=== PATIENT | male | born 1960 | race African-American/Black ===

== ENCOUNTER 2017-04-25 12:07 | Inpatient (IN) | payer OTHER ==
[2017-04-25 13:27] VITALS: BMI 20.7
--- NOTE | 2017-04-25 15:52 | HP ---
Admission [facility] Chief Complaint: Jeanna FOSS FOR REHAB FROM ALCOHOL AND COCAINE Allergies/Adverse Reactions: Allergies Allergy/AdvReac Type Severity Reaction Status Date / Time No Known Allergies Allergy Verified 04/25/17 15:18 History of Present Illness: THIS 56 YEARS OLD MALE WITH ALCOHOL AND COCAINE DEPENDENCE SEEKING REHAB ,LAST TREATMENT 2002 [facility] DEPENDENCE COPD PTSD ANXIETY AND DEPRESSION LONGEST PERIOD OF SOBRIETY 7 MONTHS Exam Limitations: No Limitations - Ebola screening Have you traveled outside of the country in the last 21 days: No Have you had contact with anyone from an Ebola affected area: No Have you been sick,other than usual withdrawal symptoms: No - Review of Systems Constitutional: No Symptoms Reported EENT: reports: No Symptoms Reported Respiratory: reports: Other (COPD) Cardiac: reports: No Symptoms Reported GI: reports: No Symptoms Reported : reports: No Symptoms Reported Musculoskeletal: reports: No Symptoms Reported Integumentary: reports: No Symptoms Reported Neuro: reports: No Symptoms reported Endocrine: reports: No Symptoms Reported Hematology: reports: No Symptoms Reported Psychiatric: reports: Anxious (PTSD), Depressed Patient History - Patient Medical History Hx Anemia: No Hx Asthma: No Hx Chronic Obstructive Pulmonary Disease (COPD): Yes (ON INHALER) Hx Cancer: No Hx Cardiac Disorders: No Hx Congestive Heart Failure: No Hx Hypertension: Yes (ON MED) Hx Hypercholesterolemia: No Hx Pacemaker: No HX Cerebrovascular Accident: No Hx Seizures: No Hx Dementia: No Hx Diabetes: No Hx Gastrointestinal Disorders: No Hx Liver Disease: No Hx Genitourinary Disorders: No Hx Sexually Transmitted Disorders: No Hx Renal Disease (ESRD): No Hx Thyroid Disease: No Hx Human Immunodeficiency Virus (HIV): No (LAST 04/03 NEGATIVE) Hx Hepatitis C: No Hx Depression: Yes (ANXIETY) Hx Suicide Attempt: No Hx Bipolar Disorder: No Hx Schizophrenia: No Other Medical History: NO SUIICDAL,NO HOMICIDAL - Patient Surgical History Hx Orthopedic Surgery: Yes (HAMMER TOES BOTH FEET) - PPD History Documented Results: Negative w/o proof Implanted On Prior [facility] Admission?: No PPD to be Administered?: Yes - Smoking Cessation Smoking history: Current every day smoker Have you smoked in the past 12 months: Yes Cigars Per Day: 10 Hx Chewing Tobacco Use: No Initiated information on smoking cessation: Yes 'Breaking Loose' booklet given: 04/25/17 - Substance & Tx. History Hx Alcohol Use: Yes Hx Substance Use: Yes Substance Use Type: Alcohol, Cocaine Hx Substance Use Treatment: Yes ([facility] 2002) - Substances Abused Cocaine Route: Smoking Frequency: Daily Amount used: 20$ Alcohol Route: Oral Frequency: 3-6 times per week Amount used: 1PINT OF VODKA Age of first use: 54 Date of Last Use: 04/24/17 Family Disease History - Family Disease History Family History: Denies Family Disease History: Other: Father (), Mother () Admission Physical Exam [facility] - Vital Signs Vital Signs: Vital Signs - 24 hr 04/25/17 13:24 Temperature 96.8 F L Pulse Rate 83 Respiratory 18 Rate Blood Pressure 128/65 - Physical General Appearance: Yes: Within Normal Limits HEENTM: Yes: Normal ENT Inspection, DIRK, Pharynx Normal Respiratory: Yes: Lungs Clear, Normal Breath Sounds, No Respiratory Distress Neck: Yes: Within Normal Limits Breast: Yes: Within Normal Limits Cardiology: Yes: Within Normal Limits, Regular Rhythm, Regular Rate, S1, S2 Abdominal: Yes: Within Normal Limits, Normal Bowel Sounds, Non Tender, Flat, Soft Genitourinary: Yes: Within Normal Limits Back: Yes: Within Normal Limits Musculoskeletal: Yes: Within Normal Limits Extremities: Yes: Within Normal Limits 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, Fully Oriented, Alert, Motor Strength 5/5 Integumentary: Yes: Within Normal Limits Lymphatic: Yes: Within Normal Limits - Diagnostic (1) Alcohol dependence Current Visit: Yes Status: Acute (2) Cocaine dependence Current Visit: Yes Status: Acute (3) COPD (chronic obstructive pulmonary disease) Current Visit: Yes Status: Acute (4) Hypertension Current Visit: Yes Status: Acute (5) Anxiety and depression Current Visit: Yes Status: Acute (6) Hammer toes, bilateral Current Visit: Yes Status: Acute Cleared for Admission [facility] - Detox or Rehab Claeared for Rehab Admission: Yes [facility] Breath Alcohol Content Breath Alcohol Content: 0 Urine Drug Screen - Results Drug Screen Negative: No Urine Drug Screen Results: ANASTASIIA-Cocaine
[2017-04-25] MEDS ORDERED: ALBUTEROL SO4 6.7 GM HFA INHALER IH PRN (15:58)
[2017-04-25] MEDS ORDERED: MAGNESIUM CITRATE 300 ML BOTTLE PO PRN (16:19)
[2017-04-25] MEDS ORDERED: NICOTINE POLACRILEX 2 MG GUM BC PRN (16:19)
[2017-04-25] MEDS ORDERED: guaiFENesin/D-METHORPHAN HB 10 ML UNIT-DOSE CUPS PO PRN (16:19)
[2017-04-25] MEDS ORDERED: P-EPHED 60MG/TRIPROLIDI 2.5MG TABLET PO PRN (16:19)
[2017-04-25] MEDS ORDERED: LOPERAMIDE HCL 2 MG CAPSULE PO PRN (16:19)
[2017-04-25] MEDS ORDERED: MAG HYDROX/AL HYDROX/SIMETH 30 ML UNIT-DOSE CUP PO PRN (16:19)
[2017-04-25] MEDS ORDERED: IBUPROFEN 400 MG TABLET (FP) PO PRN (16:19)
[2017-04-25] MEDS ORDERED: MENTHOL/PHENOL 1 EACH UD MM PRN (16:19)
[2017-04-25] MEDS ORDERED: MAGNESIUM HYDROX 2400MG/30ML ORAL SUSPENSION 30 ML CUP PO PRN (16:19)
[2017-04-25] MEDS ORDERED: diphenhydrAMINE HCL 50 MG CAPSULE PO PRN (16:19)
[2017-04-25] MEDS ORDERED: hydrOXYzine PAMOATE 50 MG CAPSULE (FP) PO PRN (16:19)
[2017-04-25] MEDS ORDERED: ACETAMINOPHEN 325 MG TABLET (FP) PO PRN (16:19)
[2017-04-25] MEDS ORDERED: TUBERCULIN PPD 5 TU/0.1ML VIAL ID ONE (18:35)
[2017-04-25] MEDS: NICOTINE 21 MG/24 HOURS TOPICAL PATCH TD SCH (19:31)
[2017-04-25] MEDS: THIAMINE HCL 100 MG TABLET (FP) PO SCH (21:08)
[2017-04-25] MEDS: NAPROXEN 500 MG TABLET (FP) PO SCH (21:08)
[2017-04-25] MEDS: BUDESONIDE/FORMETEROL FUMARATE 160/4.5 mcg INHALER IH SCH (21:09)
[2017-04-25 21:17] LABS: URINE APPEARANCE CLEAR; URINE BILIRUBIN NEGATIVE (NEGATIVE); URINE BLOOD NEGATIVE (NEGATIVE); URINE COLOR LTYELLOW; URINE GLUCOSE (UA) NEGATIVE (NEGATIVE); URINE KETONE NEGATIVE (NEGATIVE); URINE LEUK ESTERASE NEGATIVE (NEGATIVE); URINE NITRITE NEGATIVE (NEGATIVE); URINE PROTEIN NEGATIVE (NEGATIVE); URINE UROBILINOGEN NEGATIVE E.U./dl (0.2-1.0)
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
[2017-04-26] MEDS: NAPROXEN 500 MG TABLET (FP) PO SCH ×2 (09:47→21:03)
[2017-04-26] MEDS: amLODIPine BESYLATE 10 MG TABLET (FP) PO SCH (09:47)
[2017-04-26] MEDS: PRENATAL VITAMINS W/ FOLIC ACID TABLET (FP) PO SCH (09:47)
[2017-04-26] MEDS: BUDESONIDE/FORMETEROL FUMARATE 160/4.5 mcg INHALER IH SCH ×2 (09:47→21:05)
[2017-04-26] MEDS: NICOTINE 21 MG/24 HOURS TOPICAL PATCH TD SCH (09:48)
[2017-04-26 09:54] LABS: MCH 32.1 pg (25.7-33.7); MCHC 33.8 g/dl (32.0-35.9); MEAN CELL VOLUME 95.1 fl (80-96); MEAN PLT VOLUME 9.6 fl (7.5-11.1); PLATELET COUNT 276 K/MM3 (134-434); RDW 13.7 % (11.9-15.9); WHITE BLOOD COUNT 7.6 K/mm3 (4.0-10.0)
--- NOTE | 2017-04-26 10:04 | EKG ---
Test Reason : Blood Pressure : / mmHG Vent. Rate : 062 BPM Atrial Rate : 062 BPM P-R Int : 138 ms QRS Dur : 102 ms QT Int : 418 ms P-R-T Axes : 058 037 007 degrees QTc Int : 424 ms NORMAL SINUS RHYTHM VOLTAGE CRITERIA FOR LEFT VENTRICULAR HYPERTROPHY NONSPECIFIC ST ABNORMALITY ABNORMAL ECG NO PREVIOUS ECGS AVAILABLE Confirmed by IMANI MONACO MD ([id number]) on 04/26/2017 10:04:25 AM Referred By: Confirmed By:IMANI MONACO MD
[2017-04-26 10:28] LABS: ALBUMIN 4.2 g/dl (3.4-5.0); ALK PHOS 128 U/L (45-117); ANION GAP 7 (8-16); BILIRUBIN,TOTAL 0.8 mg/dL (0.2-1.0); CALCIUM 9.5 mg/dL (8.5-10.1); CO2 31 mmol/L (21-32); COCKROFT - GAULT 68; CREATININE 1.2 mg/dL (0.7-1.3); GLUCOSE,RANDOM 64 mg/dL (74-106); SGOT/AST 30 U/L (15-37); SGPT/ALT 28 U/L (12-78); TOT PROT 7.8 g/dl (6.4-8.2)
[2017-04-26] MEDS ORDERED: IBUPROFEN 600 MG TABLET (FP) PO PRN (11:53)
[2017-04-26] MEDS ORDERED: PNEUMOCOCCAL 23 VACCINE 0.5 ML VIAL IM ONE (12:00)
[2017-04-26] MEDS ORDERED: PNEUMOC 13-VAL CONJ-DIP CRM/PF 0.5 ML DISP.SYRIN IM ONE (12:00)
[2017-04-26] MEDS: LIDOCAINE 5% TOPICAL PATCH TP SCH (12:06)
[2017-04-26] MEDS: CITALOPRAM HYDROBROMIDE 20 MG TABLET (FP) PO SCH (21:03)
[2017-04-26] MEDS: traZODone HCL 100 MG TABLET (FP) PO SCH (21:03)
[2017-04-26] MEDS: THIAMINE HCL 100 MG TABLET (FP) PO SCH (21:03)
[2017-04-26] MEDS: risperiDONE 2 MG TABLET PO SCH (21:03)
[2017-04-26] MEDS: LIDOCAINE PATCH REMOVAL MC SCH (22:30)
[2017-04-27] MEDS: PRENATAL VITAMINS W/ FOLIC ACID TABLET (FP) PO SCH (09:33)
[2017-04-27] MEDS: amLODIPine BESYLATE 10 MG TABLET (FP) PO SCH (09:33)
[2017-04-27] MEDS: NAPROXEN 500 MG TABLET (FP) PO SCH ×2 (09:33→21:08)
[2017-04-27] MEDS: LIDOCAINE 5% TOPICAL PATCH TP SCH (09:34)
[2017-04-27] MEDS: NICOTINE 21 MG/24 HOURS TOPICAL PATCH TD SCH (09:34)
[2017-04-27] MEDS: BUDESONIDE/FORMETEROL FUMARATE 160/4.5 mcg INHALER IH SCH ×2 (09:36→21:08)
[2017-04-27] MEDS: traZODone HCL 100 MG TABLET (FP) PO SCH (21:07)
[2017-04-27] MEDS: LIDOCAINE PATCH REMOVAL MC SCH (21:08)
[2017-04-27] MEDS: THIAMINE HCL 100 MG TABLET (FP) PO SCH (21:08)
[2017-04-27] MEDS: risperiDONE 2 MG TABLET PO SCH (21:08)
[2017-04-27] MEDS: CITALOPRAM HYDROBROMIDE 20 MG TABLET (FP) PO SCH (21:08)
[2017-04-28] MEDS: amLODIPine BESYLATE 10 MG TABLET (FP) PO SCH (09:44)
[2017-04-28] MEDS: PRENATAL VITAMINS W/ FOLIC ACID TABLET (FP) PO SCH (09:44)
[2017-04-28] MEDS: NAPROXEN 500 MG TABLET (FP) PO SCH ×2 (09:44→21:04)
[2017-04-28] MEDS: LIDOCAINE 5% TOPICAL PATCH TP SCH (09:44)
[2017-04-28] MEDS: BUDESONIDE/FORMETEROL FUMARATE 160/4.5 mcg INHALER IH SCH ×2 (09:44→21:05)
[2017-04-28] MEDS: NICOTINE 21 MG/24 HOURS TOPICAL PATCH TD SCH (09:46)
[2017-04-28] MEDS: CITALOPRAM HYDROBROMIDE 20 MG TABLET (FP) PO SCH (21:04)
[2017-04-28] MEDS: traZODone HCL 100 MG TABLET (FP) PO SCH (21:04)
[2017-04-28] MEDS: THIAMINE HCL 100 MG TABLET (FP) PO SCH (21:04)
[2017-04-28] MEDS: risperiDONE 2 MG TABLET PO SCH (21:04)
[2017-04-28] MEDS: LIDOCAINE PATCH REMOVAL MC SCH (21:05)
[2017-04-29] MEDS: BUDESONIDE/FORMETEROL FUMARATE 160/4.5 mcg INHALER IH SCH ×2 (09:55→21:11)
[2017-04-29] MEDS: LIDOCAINE 5% TOPICAL PATCH TP SCH (09:55)
[2017-04-29] MEDS: NICOTINE 21 MG/24 HOURS TOPICAL PATCH TD SCH (09:57)
[2017-04-29] MEDS: PRENATAL VITAMINS W/ FOLIC ACID TABLET (FP) PO SCH (09:57)
[2017-04-29] MEDS: NAPROXEN 500 MG TABLET (FP) PO SCH ×2 (09:57→21:09)
[2017-04-29] MEDS: amLODIPine BESYLATE 10 MG TABLET (FP) PO SCH (10:16)
[2017-04-29] MEDS: CITALOPRAM HYDROBROMIDE 20 MG TABLET (FP) PO SCH (21:09)
[2017-04-29] MEDS: traZODone HCL 100 MG TABLET (FP) PO SCH (21:09)
[2017-04-29] MEDS: THIAMINE HCL 100 MG TABLET (FP) PO SCH (21:10)
[2017-04-29] MEDS: risperiDONE 2 MG TABLET PO SCH (21:10)
[2017-04-29] MEDS: LIDOCAINE PATCH REMOVAL MC SCH (21:10)
[2017-04-29] MEDS: COMBIVENT IH PRN (21:11)
[2017-04-30] MEDS: LIDOCAINE 5% TOPICAL PATCH TP SCH (09:51)
[2017-04-30] MEDS: PRENATAL VITAMINS W/ FOLIC ACID TABLET (FP) PO SCH (09:51)
[2017-04-30] MEDS: amLODIPine BESYLATE 10 MG TABLET (FP) PO SCH (09:51)
[2017-04-30] MEDS: NAPROXEN 500 MG TABLET (FP) PO SCH ×2 (09:51→21:01)
[2017-04-30] MEDS: NICOTINE 21 MG/24 HOURS TOPICAL PATCH TD SCH (09:52)
[2017-04-30] MEDS: BUDESONIDE/FORMETEROL FUMARATE 160/4.5 mcg INHALER IH SCH ×2 (09:54→21:02)
[2017-04-30] MEDS: THIAMINE HCL 100 MG TABLET (FP) PO SCH (21:01)
[2017-04-30] MEDS: CITALOPRAM HYDROBROMIDE 20 MG TABLET (FP) PO SCH (21:01)
[2017-04-30] MEDS: LIDOCAINE PATCH REMOVAL MC SCH (21:02)
[2017-04-30] MEDS: risperiDONE 2 MG TABLET PO SCH (21:02)
[2017-04-30] MEDS: traZODone HCL 100 MG TABLET (FP) PO SCH (21:02)
[2017-05-01] MEDS: LIDOCAINE 5% TOPICAL PATCH TP SCH (09:49)
[2017-05-01] MEDS: NICOTINE 21 MG/24 HOURS TOPICAL PATCH TD SCH (09:49)
[2017-05-01] MEDS: PRENATAL VITAMINS W/ FOLIC ACID TABLET (FP) PO SCH (09:50)
[2017-05-01] MEDS: BUDESONIDE/FORMETEROL FUMARATE 160/4.5 mcg INHALER IH SCH ×2 (09:50→21:08)
[2017-05-01] MEDS: NAPROXEN 500 MG TABLET (FP) PO SCH ×2 (09:51→21:08)
[2017-05-01] MEDS: amLODIPine BESYLATE 10 MG TABLET (FP) PO SCH (09:51)
[2017-05-01] MEDS: risperiDONE 2 MG TABLET PO SCH (21:07)
[2017-05-01] MEDS: traZODone HCL 100 MG TABLET (FP) PO SCH (21:07)
[2017-05-01] MEDS: CITALOPRAM HYDROBROMIDE 20 MG TABLET (FP) PO SCH (21:07)
[2017-05-01] MEDS: LIDOCAINE PATCH REMOVAL MC SCH (21:07)
[2017-05-01] MEDS: THIAMINE HCL 100 MG TABLET (FP) PO SCH (21:07)
[2017-05-02] MEDS: NAPROXEN 500 MG TABLET (FP) PO SCH ×2 (09:38→21:10)
[2017-05-02] MEDS: PRENATAL VITAMINS W/ FOLIC ACID TABLET (FP) PO SCH (09:38)
[2017-05-02] MEDS: amLODIPine BESYLATE 10 MG TABLET (FP) PO SCH (09:38)
[2017-05-02] MEDS: LIDOCAINE 5% TOPICAL PATCH TP SCH (09:40)
[2017-05-02] MEDS: NICOTINE 21 MG/24 HOURS TOPICAL PATCH TD SCH (09:41)
[2017-05-02] MEDS: BUDESONIDE/FORMETEROL FUMARATE 160/4.5 mcg INHALER IH SCH ×2 (09:41→21:11)
[2017-05-02] MEDS: COMBIVENT IH PRN (15:44)
[2017-05-02] MEDS: traZODone HCL 100 MG TABLET (FP) PO SCH (21:10)
[2017-05-02] MEDS: risperiDONE 2 MG TABLET PO SCH (21:10)
[2017-05-02] MEDS: THIAMINE HCL 100 MG TABLET (FP) PO SCH (21:10)
[2017-05-02] MEDS: CITALOPRAM HYDROBROMIDE 20 MG TABLET (FP) PO SCH (21:10)
[2017-05-02] MEDS: LIDOCAINE PATCH REMOVAL MC SCH (21:11)
[2017-05-03] MEDS: LIDOCAINE 5% TOPICAL PATCH TP SCH (09:39)
[2017-05-03] MEDS: amLODIPine BESYLATE 10 MG TABLET (FP) PO SCH (09:39)
[2017-05-03] MEDS: NAPROXEN 500 MG TABLET (FP) PO SCH ×2 (09:39→21:17)
[2017-05-03] MEDS: PRENATAL VITAMINS W/ FOLIC ACID TABLET (FP) PO SCH (09:39)
[2017-05-03] MEDS: NICOTINE 21 MG/24 HOURS TOPICAL PATCH TD SCH (09:40)
[2017-05-03] MEDS: BUDESONIDE/FORMETEROL FUMARATE 160/4.5 mcg INHALER IH SCH ×2 (09:40→21:18)
[2017-05-03] MEDS: risperiDONE 2 MG TABLET PO SCH (21:17)
[2017-05-03] MEDS: CITALOPRAM HYDROBROMIDE 20 MG TABLET (FP) PO SCH (21:17)
[2017-05-03] MEDS: THIAMINE HCL 100 MG TABLET (FP) PO SCH (21:17)
[2017-05-03] MEDS: traZODone HCL 100 MG TABLET (FP) PO SCH (21:17)
[2017-05-03] MEDS: LIDOCAINE PATCH REMOVAL MC SCH (21:17)
[2017-05-04] MEDS: amLODIPine BESYLATE 10 MG TABLET (FP) PO SCH (09:29)
[2017-05-04] MEDS: PRENATAL VITAMINS W/ FOLIC ACID TABLET (FP) PO SCH (09:29)
[2017-05-04] MEDS: NAPROXEN 500 MG TABLET (FP) PO SCH ×2 (09:29→21:11)
[2017-05-04] MEDS: LIDOCAINE 5% TOPICAL PATCH TP SCH (09:29)
[2017-05-04] MEDS: BUDESONIDE/FORMETEROL FUMARATE 160/4.5 mcg INHALER IH SCH ×2 (09:30→21:10)
[2017-05-04] MEDS: NICOTINE 21 MG/24 HOURS TOPICAL PATCH TD SCH (09:30)
[2017-05-04] MEDS: CITALOPRAM HYDROBROMIDE 20 MG TABLET (FP) PO SCH (21:09)
[2017-05-04] MEDS: traZODone HCL 100 MG TABLET (FP) PO SCH (21:09)
[2017-05-04] MEDS: risperiDONE 2 MG TABLET PO SCH (21:09)
[2017-05-04] MEDS: THIAMINE HCL 100 MG TABLET (FP) PO SCH (21:09)
[2017-05-04] MEDS: LIDOCAINE PATCH REMOVAL MC SCH (21:09)
[2017-05-05] MEDS: NAPROXEN 500 MG TABLET (FP) PO SCH ×2 (09:44→21:01)
[2017-05-05] MEDS: LIDOCAINE 5% TOPICAL PATCH TP SCH (09:44)
[2017-05-05] MEDS: amLODIPine BESYLATE 10 MG TABLET (FP) PO SCH (09:44)
[2017-05-05] MEDS: COMBIVENT IH PRN (09:44)
[2017-05-05] MEDS: PRENATAL VITAMINS W/ FOLIC ACID TABLET (FP) PO SCH (09:44)
[2017-05-05] MEDS: BUDESONIDE/FORMETEROL FUMARATE 160/4.5 mcg INHALER IH SCH ×2 (09:45→21:01)
[2017-05-05] MEDS: NICOTINE 21 MG/24 HOURS TOPICAL PATCH TD SCH (09:45)
[2017-05-05] MEDS: traZODone HCL 100 MG TABLET (FP) PO SCH (21:01)
[2017-05-05] MEDS: CITALOPRAM HYDROBROMIDE 20 MG TABLET (FP) PO SCH (21:01)
[2017-05-05] MEDS: THIAMINE HCL 100 MG TABLET (FP) PO SCH (21:01)
[2017-05-05] MEDS: risperiDONE 2 MG TABLET PO SCH (21:01)
[2017-05-05] MEDS: LIDOCAINE PATCH REMOVAL MC SCH (21:02)
[2017-05-06] MEDS: COMBIVENT IH PRN (09:56)
[2017-05-06] MEDS: BUDESONIDE/FORMETEROL FUMARATE 160/4.5 mcg INHALER IH SCH ×2 (09:56→21:01)
[2017-05-06] MEDS: LIDOCAINE 5% TOPICAL PATCH TP SCH (09:56)
[2017-05-06] MEDS: amLODIPine BESYLATE 10 MG TABLET (FP) PO SCH (09:56)
[2017-05-06] MEDS: NAPROXEN 500 MG TABLET (FP) PO SCH ×2 (09:56→21:00)
[2017-05-06] MEDS: NICOTINE 21 MG/24 HOURS TOPICAL PATCH TD SCH (09:57)
[2017-05-06] MEDS: PRENATAL VITAMINS W/ FOLIC ACID TABLET (FP) PO SCH (09:57)
[2017-05-06] MEDS: traZODone HCL 100 MG TABLET (FP) PO SCH (21:00)
[2017-05-06] MEDS: risperiDONE 2 MG TABLET PO SCH (21:01)
[2017-05-06] MEDS: THIAMINE HCL 100 MG TABLET (FP) PO SCH (21:01)
[2017-05-06] MEDS: CITALOPRAM HYDROBROMIDE 20 MG TABLET (FP) PO SCH (21:01)
[2017-05-06] MEDS: LIDOCAINE PATCH REMOVAL MC SCH (21:01)
[2017-05-07] MEDS: BUDESONIDE/FORMETEROL FUMARATE 160/4.5 mcg INHALER IH SCH ×2 (09:45→21:15)
[2017-05-07] MEDS: NAPROXEN 500 MG TABLET (FP) PO SCH ×2 (09:46→21:13)
[2017-05-07] MEDS: LIDOCAINE 5% TOPICAL PATCH TP SCH (09:46)
[2017-05-07] MEDS: amLODIPine BESYLATE 10 MG TABLET (FP) PO SCH (09:46)
[2017-05-07] MEDS: PRENATAL VITAMINS W/ FOLIC ACID TABLET (FP) PO SCH (09:46)
[2017-05-07] MEDS: NICOTINE 21 MG/24 HOURS TOPICAL PATCH TD SCH (10:25)
[2017-05-07] MEDS: THIAMINE HCL 100 MG TABLET (FP) PO SCH (21:13)
[2017-05-07] MEDS: risperiDONE 2 MG TABLET PO SCH (21:13)
[2017-05-07] MEDS: CITALOPRAM HYDROBROMIDE 20 MG TABLET (FP) PO SCH (21:13)
[2017-05-07] MEDS: traZODone HCL 100 MG TABLET (FP) PO SCH (21:13)
[2017-05-07] MEDS: LIDOCAINE PATCH REMOVAL MC SCH (21:13)
[2017-05-07] MEDS: COMBIVENT IH PRN (21:14)
[2017-05-08] MEDS: BUDESONIDE/FORMETEROL FUMARATE 160/4.5 mcg INHALER IH SCH ×2 (09:43→21:04)
[2017-05-08] MEDS: NICOTINE 21 MG/24 HOURS TOPICAL PATCH TD SCH (09:44)
[2017-05-08] MEDS: PRENATAL VITAMINS W/ FOLIC ACID TABLET (FP) PO SCH (09:44)
[2017-05-08] MEDS: LIDOCAINE 5% TOPICAL PATCH TP SCH (09:44)
[2017-05-08] MEDS: amLODIPine BESYLATE 10 MG TABLET (FP) PO SCH (09:44)
[2017-05-08] MEDS: NAPROXEN 500 MG TABLET (FP) PO SCH ×2 (09:44→21:04)
[2017-05-08] MEDS: THIAMINE HCL 100 MG TABLET (FP) PO SCH (21:04)
[2017-05-08] MEDS: risperiDONE 2 MG TABLET PO SCH (21:04)
[2017-05-08] MEDS: LIDOCAINE PATCH REMOVAL MC SCH (21:04)
[2017-05-08] MEDS: traZODone HCL 100 MG TABLET (FP) PO SCH (21:04)
[2017-05-08] MEDS: CITALOPRAM HYDROBROMIDE 20 MG TABLET (FP) PO SCH (21:04)
[2017-05-09] MEDS: COMBIVENT IH PRN (06:22)
[2017-05-09 06:27] VITALS: BP 133/79; PULSE 67; TEMP 97.7
[2017-05-09] MEDS: BUDESONIDE/FORMETEROL FUMARATE 160/4.5 mcg INHALER IH SCH (09:40)
[2017-05-09] MEDS: PRENATAL VITAMINS W/ FOLIC ACID TABLET (FP) PO SCH (09:40)
[2017-05-09] MEDS: LIDOCAINE 5% TOPICAL PATCH TP SCH (09:41)
[2017-05-09] MEDS: NICOTINE 21 MG/24 HOURS TOPICAL PATCH TD SCH (09:41)
[2017-05-09] MEDS: amLODIPine BESYLATE 10 MG TABLET (FP) PO SCH (09:41)
[2017-05-09] MEDS: NAPROXEN 500 MG TABLET (FP) PO SCH (09:41)
--- NOTE | 2017-05-09 09:42 | PN ---
Psychiatric Progress Note Vital Signs: Vital Signs Period Temp Pulse Resp BP Sys/Arthur Pulse Ox Last 24 Hr 97.7 F 65-67 18-18 127-133/73-79 Date of Session: 05/09/17 Chief Complaint:: discharge visit HPI: The patient has addressed alcohol, cocaine, nicotine dependence comorbid MAjor depressive disorder. ROS: Emphysema, Hypertension, Acid Reflux Arthritis to Rt hand and Rt knee, Hammer toes to both feet and bunion to Lt toe and area with dark pigmentation and swollen. Current Medications: Active Medications Generic Name Dose Route Start Last Admin Trade Name Freq PRN Reason Stop Dose Admin Acetaminophen 650 mg 04/25/17 16:19 04/26/17 12:03 Tylenol - PO 650 mg Q4H PRN Administration PAIN Al Hydroxide/Mg Hydroxide 30 ml 04/25/17 16:19 05/06/17 21:03 Mylanta Oral Suspension - PO 30 ml Q6H PRN Administration DYSPEPSIA Albuterol Sulfate 2 puff 04/25/17 15:58 Ventolin Hfa Inhaler - IH Q4H PRN SHORT OF BREATH/WHEEZING Amlodipine Besylate 10 mg 04/26/17 10:00 05/08/17 09:44 Norvasc - PO 10 mg DAILY VAHE Administration Budesonide/Formoterol Fumarate 2 puff 04/25/17 22:00 05/08/17 21:04 Symbicort 160/4.5mcg - IH 2 puff BID VAHE Administration Citalopram Hydrobromide 20 mg 04/26/17 22:00 05/08/17 21:04 Celexa - PO 20 mg HS VAHE Administration Diphenhydramine HCl 50 mg 04/25/17 16:19 04/25/17 21:08 Benadryl - PO 50 mg HSMR1 PRN Administration INSOMNIA Eucalyptus/Menthol/Phenol/Sorbitol 1 each 04/25/17 16:19 Cepastat Lozenge - MM Q4H PRN SORE THROAT Guaifenesin 10 ml 04/25/17 16:19 Robitussin Dm - PO Q6H PRN COUGH Hydroxyzine Pamoate 50 mg 04/25/17 16:19 04/26/17 09:47 Vistaril - PO 50 mg Q4H PRN Administration AGITATION Lidocaine 1 patch 04/26/17 12:15 05/08/17 09:44 Lidoderm Patch - TP 1 patch DAILY VAHE Administration Loperamide HCl 4 mg 04/25/17 16:19 Imodium - PO Q6H PRN DIARRHEA Magnesium Citrate 300 ml 04/25/17 16:19 Citroma - PO Q48H PRN CONSTIPATION Magnesium Hydroxide 30 ml 04/25/17 16:19 Milk Of Magnesia - PO DAILY PRN CONSTIPATION Miscellaneous 1 each 04/26/17 22:00 05/08/17 21:04 Lidoderm Patch Removal MC 1 each DAILY@2200 VAHE Administration Naproxen 500 mg 04/25/17 22:00 05/08/17 21:04 Naprosyn - PO 500 mg BID VAHE Administration Nicotine 21 mg 04/25/17 17:00 05/08/17 09:44 Nicoderm Patch - TD Not Given DAILY VAHE Nicotine Polacrilex 2 mg 04/25/17 16:19 Nicorette Gum - BC Q2H PRN NICOTINE REPLACEMENT RX Non-Formulary Medication 2 puff 04/25/17 16:04 05/09/17 06:22 Combivent IH 2 puff BID PRN Administration WHEEZING Multivit/Folic Acid/Iron 1 tab 04/26/17 10:00 05/08/17 09:44 Vitamins ([facility]) - PO 1 tab DAILY VAHE Administration Pseudoephedrine/Triprolidine 1 combo 04/25/17 16:19 Actifed - PO TID PRN NASAL CONGESTION Risperidone 2 mg 04/26/17 22:00 05/08/17 21:04 Risperdal - PO 2 mg HS VAHE Administration Thiamine HCl 100 mg 04/25/17 22:00 05/08/17 21:04 Vitamin B1 - PO 100 mg HS VAHE Administration Trazodone HCl 100 mg 04/26/17 22:00 05/08/17 21:04 Desyrel - PO 100 mg HS VAHE Administration Current Side Effect: No Lab tests ordered: No Lab tests reviewed: Yes Provider note:: Patient has completed today his treatment and met his goals, will continue to address his issues at [facility], he reports that his though participation in this program, he has learned to identify his triggers and how to manage them. He focused on importance of changing attitudes for the utilizations of supports available to prevent relapses. Patient reports that he feels more hopeful and energetic, medications well tolerated, scripts provided. He is stable for discharge Total face to face time:: 35 Mental Status Exam - Mental Status Exam Alert and Oriented to: Time, Place, Person Cognitive Function: Good Patient Appearance: Well Groomed Mood: Hopeful Affect: Mood Congruent Patient Behavior: Appropriate, Cooperative Speech Pattern: Clear, Appropriate Voice Loudness: Normal Thought Process: Intact, Goal Oriented Thought Disorder: Not Present Hallucinations: Denies Suicidal Ideation: Denies Homicidal Ideation: Denies Insight/Judgement: Fair Sleep: Fair Appetite: Good Muscle strength/Tone: Normal Gait/Station: Normal Psychiatric Treatment Plan - Problem List (7) Major depressive disorder with psychotic features Qualifiers: Active/Remission status: currently active Major depression episode severity: severe
== END 2017-05-09 10:00 | disposition home or self-care (01) | DRG 772 ==
LOC: YASAS 12:07 → Y5N 15:43
PROVIDERS: ADMIT Psychiatry & Neurology Psychiatry; ATTEND Psychiatry & Neurology Psychiatry
PROC: HZ42ZZZ Group Counseling for Substance Abuse Treatment, Cognitive-Behavioral (ICD-10-PCS; principal; 2017-04-25)
DX: F10.20 Alcohol dependence, uncomplicated (principal); F14.20 Cocaine dependence, uncomplicated; F17.210 Nicotine dependence, cigarettes, uncomplicated; F43.10 Post-traumatic stress disorder, unspecified; F33.2 Major depressive disorder, recurrent severe without psychotic features; I10 Essential (primary) hypertension; J44.9 Chronic obstructive pulmonary disease, unspecified; K21.9 Gastro-esophageal reflux disease without esophagitis; M19.90 Unspecified osteoarthritis, unspecified site; M20.42 Other hammer toe(s) (acquired), left foot; M20.41 Other hammer toe(s) (acquired), right foot
CPT/HCPCS: 36415; 80053; 81003; 85027; 86593; 93005; 93010